=== PATIENT | male | born 1955 | race Caucasian/White ===

== ENCOUNTER 2023-04-10 10:16 | Day surgery (SDC) | payer MEDICARE, SELFPAY ==
[2023-04-10 10:46] VITALS: BP 148/101; PULSE 79; RESP 16; TEMP 36.2; O2SAT 99; BMI 24.0
--- NOTE | 2023-04-10 11:16 | HP.PCM_ITS ---
HPI - General General Date of Admission: 04/10/23 Date of Service: 04/10/23 HPI Narrative WALI NARAYANAN, is a 67 M who presents today for screening colonoscopy. He has no past medical history and does not take any medicines daily basis. He is not having abdominal pain, cramping, nausea, vomiting or diarrhea. Overall is in very good health. [facility], [facility] Medical History Alcohol use Chest pain Heartburn History of echocardiogram History of stress test Non-smoker Wears glasses Wears hearing aid Home Medications acetaminophen 500 mg tablet 500 - 1,000 mg PO Q6H PRN PRN Pain 10/22/16 [History Last Taken Unknown] Allergy/AdvReac Type Severity Reaction Status Date / Time No Known Allergies Allergy Verified 10/23/22 16:14 Family History Father Throat cancer Surgical History History of surgery on arm Hx of appendectomy Social History household members: spouse Smoking Status: Never smoker ROS Review of Systems ROS Unobtainable: other Constitutional Constitutional: Denies fatigue, fever(s), poor appetite, weight gain or weight loss ENT HEENT: Denies mouth lesions Cardiovascular Cardiovascular: Denies abdominal bloating, abdominal edema or abdominal pain Respiratory/Chest Respiratory/Chest: Denies change in mental status, change in phlegm color, chest congestion or chest tightness Gastrointestinal Gastrointestinal: Denies belching, bloating, change in bowel habits, change in stool character, chewing difficulty, coffee ground emesis, constipation, cramping, diarrhea, dyspepsia, dysphagia, early satiety, excessive flatus, fecal incontinence, heartburn, hematemesis, hematochezia, hemorrhoids, loose stools, melena, nausea, odynophagia, rectal bleeding, tenesmus, vomiting or weight changes Genitourinary Genitourinary: Denies abdominal discomfort, burning urination or itching Musculoskeletal Musculoskeletal: Reports as per HPI; Denies muscle weakness or myalgias Integumentary Integumentary: Denies jaundice Neurologic Neurologic: Denies lack of coordination or weakness Psychiatric Psychiatric: Denies confusion, depression, memory loss, mood swings, paranoia or suicidal ideation Endocrine Endocrinology: Denies systems reviewed and no addt'l complaints, except as documented Hematologic/Lymphatic Hematologic/Lymphatic: Denies anemia, easy bleeding, easy bruising or lymphadenopathy Allergic/Immunologic Allergic/Immunologic: Denies systems reviewed and no addt'l complaints, except as documented Vital Signs Vital Signs Vital Signs: 04/10/23 10:46 04/10/23 10:46 Temperature 97.2 F L Temperature Source Temporal Pulse Rate 79 Respiratory Rate 16 Respiratory Pattern Normal Blood Pressure 148/101 H Blood Pressure Mean 116 Blood Pressure Source Monitor Blood Pressure Position Semi-Fowlers Blood Pressure Location Left Arm Pulse Ox 99 Oxygen Delivery Method Room Air Weight Weight: 144 lb 6.444 oz Body Mass Index (BMI) 24.0 Physical Exam Const alert General Appearance: cooperative Orientation / Consciousness: oriented to person HEENT hearing grossly normal bilaterally Head and Scalp: normal to inspection Face and Sinus: face symmetric Nose: external nose normal Mouth: oral and palatal mucosa normal Eyes conjunctivae normal General Eye: normal appearance of both eyes Neck full ROM General: normal visual inspection Lymph Lymphatic: no lymphadenopathy noted Chest inspection of chest normal and palpation of chest normal Chest: symmetrical chest wall rise Resp normal respiratory effort Effort and Inspection: able to speak in complete sentences Cardio regular rate GI non-distended Percussion: normal to percussion Rectal Exam: deferred Neuro Speech: speech normal Gait (Neuro): normal gait Assessment & Plan Assessment/Plan (1) Encounter for screening for malignant neoplasm of colon: PLAN: He was explained alternatives, risk, benefits include not withstanding bleeding, infection, sepsis, perforation, need for emergent surgery and . He will have an ASA of 2.
[2023-04-10 11:40] VITALS: BP 114/78; BP 148/99; PULSE 72; RESP 16; TEMP 36.2; O2SAT 100
[2023-04-10 11:45] VITALS: BP 118/84; BP 148/99; PULSE 70; RESP 14; O2SAT 98
--- NOTE | 2023-04-10 11:47 | OP.COLON_ITS ---
Patient Name: Ryan Owens Procedure Date: 04/10/2023 11:07 AM Date of : 1955 Age: 67 Procedure: Colonoscopy Indications: Screening for colorectal malignant neoplasm Providers: Dakota Pennington DO Medicines: Monitored Anesthesia Care Patient Profile: This is a 67 year old male. Refer to note in patient chart for documentation of history and physical. Last Colonoscopy: more than 10 years ago. Complications: No immediate complications. Procedure: Pre-Anesthesia Assessment: - Prior to the procedure, a History and Physical was performed, and patient medications and allergies were reviewed. The risks and benefits of the procedure and the sedation options and risks were discussed with the patient. All questions were answered and informed consent was obtained. Patient identification and proposed procedure were verified by the physician. Mental Status Examination: normal. Respiratory Examination: clear to auscultation. CV Examination: normal. Prophylactic Antibiotics: The patient does not require prophylactic antibiotics. Prior Anticoagulants: The patient has taken no anticoagulant or antiplatelet agents. ASA Grade Assessment: II - A patient with mild systemic disease. After reviewing the risks and benefits, the patient was deemed in satisfactory condition to undergo the procedure. The anesthesia plan was to use monitored anesthesia care (MAC). Immediately prior to administration of medications, the patient was re-assessed for adequacy to receive sedatives. The heart rate, respiratory rate, oxygen saturations, blood pressure, adequacy of pulmonary ventilation, and response to care were monitored throughout the procedure. The physical status of the patient was re-assessed after the procedure. After I obtained informed consent, the scope was passed under direct vision. Throughout the procedure, the patient's blood pressure, pulse, and oxygen saturations were monitored continuously. The Colonoscope was introduced through the anus and advanced to the cecum, identified by appendiceal orifice and ileocecal valve. The colonoscopy was performed without difficulty. The patient tolerated the procedure well. The quality of the bowel preparation was adequate. The ileocecal valve, appendiceal orifice, and rectum were photographed. Scope In: 11:24:00 AM Scope Withdrawal Time 0 hours 6 minutes 32 seconds Scope Out: 11:36:12 AM Total Procedure Duration Time 0 hours 12 minutes 12 seconds Findings: The perianal and digital rectal examinations were normal. A few small-mouthed diverticula were found in the recto-sigmoid colon. The exam was otherwise without abnormality on direct and retroflexion views. Impression: - Diverticulosis in the recto-sigmoid colon. - The examination was otherwise normal on direct and retroflexion views. - No specimens collected. Recommendation: - Discharge patient to home. - Resume previous diet. - Continue present medications. - Repeat colonoscopy in 10 years for screening purposes. Procedure Code(s): --- Professional --- G0121, Colorectal cancer screening; colonoscopy on individual not meeting criteria for high risk CPT copyright 2021 [employer]. All rights reserved. The codes documented in this report are preliminary and upon hcc coders review may be revised to meet current compliance requirements. Dakota Pennington DO 04/10/2023 11:47:02 AM This report has been signed electronically. Number of Addenda: 0 Note Initiated On: 04/10/2023 11:07 AM
--- NOTE | 2023-04-10 11:47 | OP.CCLET_ITS ---
04/10/2023 Yun Arredondo [facility] Re : Colonoscopy procedure for Ryan Owens Dear [facility] This procedure was performed on Monday, April 10, 2023. My impressions and recommendations are as follows: Impressions : - Diverticulosis in the recto-sigmoid colon. - The examination was otherwise normal on direct and retroflexion views. - No specimens collected. Recommendations : - Discharge patient to home. - Resume previous diet. - Continue present medications. - Repeat colonoscopy in 10 years for screening purposes. My findings are described in the full procedure note, which is enclosed. If I can be of further assistance, please feel free to contact me at . Sincerely, Dakota Pennington, 04/10/2023 11:47:02 AM This report has been signed electronically.
[2023-04-10 11:50] VITALS: BP 129/79; BP 148/99; PULSE 76; RESP 16; O2SAT 98
[2023-04-10 11:57] VITALS: BP 137/93; BP 148/99; PULSE 73; RESP 16; TEMP 37.2; O2SAT 99
[2023-04-10 12:19] VITALS: BP 148/99
== END 2023-04-10 12:29 | disposition home or self-care (01) ==
LOC: EN 10:22 → AC 10:25
PROVIDERS: Visit Provider Internal Medicine Gastroenterology
PROC: 0DJD8ZZ Inspection of Lower Intestinal Tract, Via Natural or Artificial Opening Endoscopic (ICD-10-PCS; CPT 45378; principal; 2023-04-10 11:10)
DX: Z12.11 Encounter for screening for malignant neoplasm of colon (principal); K57.30 Diverticulosis of large intestine without perforation or abscess without bleeding
CPT/HCPCS: G0121; J7120; J2405

== ENCOUNTER 2025-04-10 12:14 | Emergency (ER) | payer MEDICARE, SELFPAY ==
[2025-04-10 12:15] VITALS: BP 156/97; PULSE 75; RESP 18; TEMP 35.8; O2SAT 99; BMI 24.1
--- NOTE | 2025-04-10 12:25 | CT_ITS ---
PROCEDURE: BRAIN/HEAD WITHOUT CONTRAST 04/10/2025 REASON FOR EXAM: PAIN TECHNIQUE: Procedure Code: CTBR Modality: CT Procedure: BRAIN/HEAD WITHOUT CONTRAST Coronal and Sagittal reconstruction series were provided. One or more dose reduction techniques were used (e.g., Automated exposure control, adjustment of the mA and/or kV according to patient size, use of iterative reconstruction technique. RADIATION DOSE SUMMARY: DLP: 796 mGycm COMPARISON: none FINDINGS: There is no acute infarct, intracranial hemorrhage, or mass effect. There is no hydrocephalus or significant midline shift. No acute, depressed calvarial fractures. No large scalp hematomas. The paranasal sinuses are clear. CT/Brain/Head without Contrast IMPRESSION: No acute intracranial process. Reading Location: [id number]
--- NOTE | 2025-04-10 12:26 | EDS_ITS ---
HPI History of Present Illness Chief Complaint: Headache Narrative Narrative: 69-year-old male presents with his because of headache that he has had for the last 5 days. He denies any fevers or chills, no nausea or vomiting, no diarrhea or other symptoms. He states that he has had pain mainly in the occipital area radiating down to his neck, his neck may feel somewhat stiff. He states he also has brain fog. He denies any trauma. He does not take blood thinners. Additionally, his states that she gave him NSAIDs on Saturday and which seemed to help with his headache, but he did not take anything today. He rates it a 7 out of 10. No exacerbating or alleviating factors. No paresthesias of arms or legs. [facility] Medical History Wears glasses Wears hearing aid Alcohol use Heartburn Non-smoker History of echocardiogram History of stress test Chest pain Home Medications ?Medication ?Instructions ?Recorded ?Last Taken ?Type acetaminophen 500 mg tablet 500 - 1,000 mg PO Q6H PRN PRN Pain 10/22/16 Unknown History Allergy/AdvReac Type Severity Reaction Status Date / Time No Known Allergies Allergy Verified 04/10/25 12:15 Family History Father Throat cancer Surgical History History of surgery on arm Hx of appendectomy Social History household members: spouse Smoking Status: Never smoker ROS ROS ED ROS Narrative Review of systems positive for headache and neck pain/stiffness, no fevers or chills, no nausea or vomiting, no paresthesias, no exacerbating or alleviating factors. Positive brain fog. EXAM Physical Exam Narrative Exam Narrative: Afebrile. Vital signs noted. Nontoxic-appearing. Cardiovascular examination feels regular rate and rhythm. Lungs are clear to auscultation bilaterally. Abdomen is soft and nontender with positive bowel sounds. Neurological examination is nonfocal, nonlateralizing. Awake, alert, oriented x 3. NIH stroke scale is 0. Cerebellar functioning normal as tested. PERRL, EOMI. Neck soft and supple without meningismus. Full range of motion without pain. No vertebral point tenderness or bony step-off. Const Vital Signs: 04/10/25 12:15 04/10/25 13:12 Temperature 96.5 F L Temperature Source Temporal Pulse Rate 75 56 L Respiratory Rate 18 12 Blood Pressure 156/97 H 149/95 H Blood Pressure Mean 116 113 Pulse Ox 99 Oxygen Delivery Method Room Air MDM MDM MDM Narrative Medical decision making narrative: Differential diagnosis includes but not limited to new onset headache disorder versus migrainous type headache versus brain mass versus hemorrhage. Regarding his stiff neck, I do not feel he requires a lumbar puncture or any imaging of the neck. I have low suspicion for stroke given his normal NIH stroke scale being 0, and additionally has had a headache for 5 days. Patient administered Toradol, Compazine, and Benadryl as well as normal saline. I will check a CBC and BMP to look for signs of dehydration or anemia. However clinically he is not anemic. I reviewed his laboratory work and he has normal white count of 6.3, hemoglobin 16, hematocrit 47.7, platelet count 173. Electrolyte panel is grossly unremarkable with a normal glucose of 93, sodium normal at 140 with potassium 4.2, normal anion gap of 8, BUN/creatinine normal. CT of the brain was obtained and reviewed. There is no acute process according to the radiology report. Upon repeat examination, he was seen ambulatory to the bathroom and back. Upon repeat examination, although he states initially that he feels the same, he states that medication took the pain away in the occiput. At this point in time, I feel he can be discharged to follow-up with his primary care provider. He and his were told that they may need follow-up with neurology as well, or even a headache specialist. While I am unsure as to the cause of his pain, I feel he can be discharged. Return instructions to the emergency department were reviewed. Disposition is discharged home in stable condition. History & Record Review Discussion w/independent historian: Patient and Family Additional record(s) reviewed:: Prior ED visit (Last ED visit 2015) Lab Data Attestation: I reviewed the patient's lab results. Labs: Laboratory Results - last 24 hr 04/10/25 12:27 WBC 6.3 RBC 5.42 Hgb 16.0 Hct 47.7 MCV 88.0 MCH 29.5 MCHC 33.5 RDW Std Deviation 38.5 RDW Coeff of Charley 12.0 Plt Count 173 MPV 10.3 Immature Gran % (Auto) 0.200 Neut % (Auto) 61.7 Lymph % (Auto) 27.9 Boone % (Auto) 8.8 Eos % (Auto) 0.8 Baso % (Auto) 0.6 Absolute Neuts (auto) 3.9 Absolute Lymphs (auto) 1.77 Nucleated RBC % 0 Sodium 140 Potassium 4.2 Chloride 106 Carbon Dioxide 25.6 Anion Gap 8 BUN 11 Creatinine 0.87 Estim Creat Clear Calc 71.67 Est GFR (MDRD) Non-Af 94 BUN/Creatinine Ratio 12.8 Glucose 93 Calcium 9.9 Radiography Diagnostic Testing: Clinical Impression(s) from Imaging Studies Brain CT 04/10/25 12:25 IMPRESSION: No acute intracranial process. Reading Location: [facility] Discharge Plan Triage Chief Complaint: Headache ED Provider: Edgar Acosta Dx/Rx/DC Orders Prescriptions: No Action acetaminophen 500 MG tablet 500 - 1,000 mg PO Q6H PRN PRN (Reason: Pain) Primary Care Provider: Abbey Perez [facility] Referrals: [facility] [Non-Staff, Medical] Print Language: Ethiopian
[2025-04-10] MEDS: 0.9% Normal Saline (1000mL) 1,000 ML 999 ML IV (12:31)
[2025-04-10 12:33] LABS: Hematocrit 47.7 % (40-54); Hemoglobin 16.0 g/dL (13.0-16.5); Immature Granulocytes Count 0.010 X10^3/uL (0.0-0.0); Mean Corp Hgb Conc 33.5 g/dL (32-36); Mean Corpuscular Volume 88.0 fL (80-94); Mean Platelet Vol. 10.3 fl (6.2-12.0); NRBC Flagged by Analyzer 0 % (0-5); Platelet Count 173 K/mm3 (150-450); RBC Distribution Width CV 12.0 % (11.6-14.6); RBC Distribution Width SD 38.5 fl (35.1-43.9); Red Blood Count 5.42 M/mm3 (4.6-6.2); White Blood Count 6.3 K/mm3 (4.4-11.0)
[2025-04-10] MEDS: DiphenhydrAMINE 50 MG/ML Syringe 25 MG IV (12:33)
--- OUTSIDE RECORDS SUMMARY | 2025-04-10 12:36 | XMS RPT_ITS | CCD ---
Author Organization [facility] Care Team Providers Care Projection Technician Name Role Phone Dr. Syed Jack Attending Unavailable Wanda, Dr. Ernst Ratliff Referring Unavailable Clinic, [place] Maria Elena Primary Care Provider Un available [facility] [place] [facility], Yun Arredondo Referring Provid er Friend, Dr. Duncan Attending Provider Friend, Dr. Duncan Other Provider [facility] [place], [place] Maria Elena Primary Care Unavailable Jacqueline Hua Attending [facility], [facility] Primary Care [facility], [place] Maria Elena Referring Unavailable Dakota Pennington Attending [facility], [facility] Unavailable Chris AESTHETICS INSTRUCTOR, Abbey Attending Unavailable Chris AESTHETICS INSTRUCTORAbbey Attending [facility], [facility] Primary Care [facility], [facility] Primary Care [facility], Yun Arredondo Referring Unavailable FriendDakota Consulting Unavailable FriendDakota Attending Unavailable Medications Current Medications Medication Drug Class(es) Dates Sig (Normalized) Sig (Original) acetaminophen 500 mg oral tablet (1 source) Start: 10-22-2016 take 500-1000 mg by mouth every six hours as needed Acetaminophen Active 500 - 1000 MG PO EVERY 6 HOURS NEEDED October 21, 2016 11:00pm predniSONE 10 mg oral tablet (1 source) Start: 01-18-2023 predniSONE (DELTASONE) 10 mg tablet Indications: Allergic contact dermatitis due to plants, except food Take 4 tabs daily for 3 days, then 2 tabs daily for 3 days, then 1 tab daily for 3 days with food. 21 tablet 0 01/18/2023 Active Start: 01-18-2023 predniSONE (DE LTASONE) 10 mg tablet Indications: Allergic contact dermatitis due to plants, except food Take 4 tabs daily for 3 days, then 2 tabs daily for 3 days, then 1 tab daily for 3 days with food. 21 tablet 0 01/18/2023 Active Comment on above: Take 4 tabs daily fo r 3 days, then 2 tabs daily for 3 days, then 1 tab daily for 3 days with food. Completed/Discontinued Medications Medication Drug Class(es) Dates Sig (Normalized) Sig (Original) amoxicillin 500 mg / clavulanate 125 mg oral tablet (1 source) Penicillin-class Antibacterial Start: 10-22-2016 End: 10-23-2022 Amoxicillin-Pot Clavulanate (Augmentin 500-125 Tablet) 1 EACH tablet Discontinued 1 EACH PO TWICE A DAY October 21, 2016 11:00pm October 23, 2022 3:15pm aspirin 325 mg delayed release oral tablet (1 source) Platelet Aggregation Inhibitor, Nonsteroidal Anti-inflammatory Drug Start: 10-22-2016 End: 10-23-2022 take 325 mg by mouth once daily Aspirin Discontinued 325 MG PO DAILY October 21, 2016 11:00pm October 23, 2022 3:15pm promethazine hydrochloride 25 mg oral tablet (1 source) Phenothiazine Start: 06-03-2017 take 1 tablet by mouth every six hours as needed for nausea and nausea promethazine (PHENERGAN) 25 mg tablet Indications: Nausea Take 1 tablet by mouth every 6 hours as needed for Nausea/Vomiting. 12 tablet 0 06/03/2017 Active Comment on above: Take 1 tablet by stefan every 6 hours as needed for Nausea/Vomiting. raNITIdine 75 mg oral tablet (1 source) Histamine-2 Receptor Antagonist Start: 10-22-2016 End: 10-23-2022 Ranitidine Hcl (Zantac 75) 75 MG tablet Discontinued 75 MG PO NEEDED October 21, 2016 11:00pm October 23, 2022 3:15pm sildenafil 100 mg oral tablet (1 source) Phosphodiesterase 5 Inhibitor Start: 11-24-2013 sildenafil (VIAGRA) 100 mg tablet Take as directed 6 tablet 6 11/24/2013 Active Comment on above: Take as directed Problems Problem Classification Problem Date Documented Da te Episodic/Chronic Allergic reactions (1 source) Allergic contact dermatitis caused by plant material; Translations: [Allergic contact dermatitis due to plants, except food] 01-18-2023 Episodic Nonspecific chest pain (1 source) Chest pain; Translations: [Chest pain, unspecified] 10-23-2022 Episodic Other inflammatory condition of skin (1 source) Rosacea; Translations: [Rosacea, unspecified] Onset: 05-24-2009 05-24-2009 Chronic Other screening for suspected conditions (not mental disorders or infectious disease) (6 sources) Patient encounter status; Translations: [Encounter for screening for malignant neoplasm of colon] Onset: 04-29-2023 10-23-2022 Episodic Results Test Name Value Interpretation Reference Range Facil ity SURGICAL PATHOLOGYon 024 CASE REPORT [facility] Comment on above: Order Comment: Rena ferrer Type: TISSUE SPECIMEN Ordering Facility: [facility] Address: [address] [place] [address] Result Comment: Surg ical Pathology Report Case: [id number] Authorizing Provider: Ernst Muñoz Collected: 07/16/2023 02:55 PM Ordering Location: [facility] Received: 07/16/2023 07:35 PM [facility] Pathologist: Kimberley Alexis MD Specimen: SKIN SHAVE BIOPSY, L side nose near nares Performed By: #### S #### [facility] CLIA [id number] [address] [place] [address] [place] [address] [facility] CLINICAL HISTORY Hx SCC in situ face. R/o BCC vs grannlomatous rosacea, sebaceous. [facility] Comment on above: Order Comment: Rena ferrer Type: TISSUE SPECIMEN Ordering Facility: [facility] Address: [address] [place] [address], [place] [address] Performed By: #### S #### [facility] CLIA [id number] [address] [place] [address] [facility] FINAL DIAGNOSIS [facility] Comment on above: Order Comment: Rena ferrer Type: TISSUE SPECIMEN Ordering Facility: [facility] Address: [address] [place] [address] Result Comment: A. S kin, left side nose near nares, shave biopsy: - Basal cell carcinoma, nodular type. JESSICA/NICKI/kiarra 07/17/2023 Performed By: #### S #### [facility] CLIA [id number] [address] [place] [address] STATES OF [facility] FINAL PERFORMING LAB [facility] Comment on above: Order Comment: Speci men Type: TISSUE SPECIMEN Ordering Facility: [facility] Address: [address] [place] [address] Result Comment: Diag nostic interpretation performed at [facility], [address] [place] [address] CLIA# [id number] Automatic Lehr Operator: Fito Hdz M.D. Performed By: #### S #### [facility] CLIA [id number] [address] [place] [address] OF [facility] GROSS DESCRIPTION [facility] Comment on above: Order Comment: Speci men Type: TISSUE SPECIMEN Ordering Facility: [facility] Address: [address] [place] [address] Result Comment: A. S KIN SHAVE BIOPSY Received in formalin is a 0.5 x 0.5 x 0.1 cm shave of skin. On the skin surface there is a 0.2 cm ogden, slightly elevated area. The specimen is bisected. Totally submitted in one cassette. Gross examination performed at [facility], [address] [place] [address] KK July 16, 2023 11:19 PM Performed By: #### S #### [facility] CLIA [id number] [address] [place] [address] [place] Colonoscopy Reporton 04-10- 023 Colonoscopy Report [facility] Medical Records Department [address] [place] [address] Colonoscopy Report MR#: [id number] Acct: [id number] Name: WALI OWENS Rep #: [id number] : 1955 67 From: Dakota Friend DO PCP: [facility] Status:[facility] Patient Name: Wali Owens Procedure Date: 04/10/2023 11:07 AM Date of : 1955 Age: 67 Procedure: Colonoscopy Indications: Screening for colorectal malignant neoplasm Providers: Dakota Pennington DO Medicines: Monitored Anesthesia Care Patient Profile: This is a 67 year old male. Refer to note in patient chart for documentation of history and physical. Last Colonoscopy: more than 10 years ago. Complications: No immediate complications. Procedure: Pre-Anesthesia Assessment: - Prior to the procedure, a History and Physical was performed, and patient medications and allergies were reviewed. The risks and benefits of the procedure and the sedation options and risks were discussed with the patient. All questions were answered and informed consent was obtained. Patient identification and proposed procedure were verified by the physician. Mental Status Examination: normal. Respiratory Examination: clear to auscultation. CV Examination: normal. Prophylactic Antibiotics: The patient does not require prophylactic antibiotics. Prior Anticoagulants: The patient has taken no anticoagulant or antiplatelet agents. ASA Grade Assessment: II - A patient with mild systemic disease. After reviewing the risks and benefits, the patient was deemed in satisfactory condition to undergo the procedure. The anesthesia plan was to use monitored anesthesia care (MAC). Immediately prior to administration of medications, the patient was re-assessed for adequacy to receive sedatives. The heart rate, respiratory rate, oxygen saturations, blood pressure, adequacy of pulmonary ventilation, and response to care were monitored throughout the procedure. The physical status of the patient was re-assessed after the procedure. After I obtained informed consent, the scope was passed under direct vision. Throughout the procedure, the patient's blood pressure, pulse, and oxygen saturations were monitored continuously. The Colonoscope was introduced through the anus and advanced to the cecum, identified by appendiceal orifice and ileocecal valve. The colonoscopy was performed without difficulty. The patient tolerated the procedure well. The quality of the bowel preparation was adequate. The ileocecal valve, appendiceal orifice, and rectum were photographed. Scope In: 11:24:00 AM Scope Withdrawal Time 0 hours 6 minutes 32 seconds Scope Out: 11:36:12 AM Total Procedure Duration Time 0 hours 12 minutes 12 seconds Findings: The perianal and digital rectal examinations were normal. A few small-mouthed diverticula were found in the recto-sigmoid colon. The exam was otherwise without abnormality on direct and retroflexion views. Impression: - Diverticulosis in the recto-sigmoid colon. - The examination was otherwise normal on direct and retroflexion views. - No specimens collected. Recommendation: - Discharge patient to home. - Resume previous diet. - Continue present medications. - Repeat colonoscopy in 10 years for screening purposes. Procedure Code(s): --- Professional --- G0121, Colorectal cancer screening; colonoscopy on individual not meeting criteria for high risk CPT copyright 2021 [employer]. All rights reserved. The codes documented in this report are preliminary and upon cattle sprayer review may be revised to meet current compliance requirements. Dakota Pennington DO 04/10/2023 11:47:02 AM This report has been signed electronically. Number of Addenda: 0 Note Initiated On: 04/10/2023 11:07 AM 04/10/23 1147 Date Dakota Pennington DO Cosigner Signature: Date (if indicated) CC: Dakota Pennington DO; [facility] Date Dictated: 04/10/23 110 Date Transcribed: Research Aide: NAMAN Signed [facility] Office Visit (UCWSTR ) WALI OWENS ([id number]) 1955 M Date Time Provider Department 01/18/23 9:15 AM [facility] During your visit today, we recorded the following information about you: Temperature Pulse Respiration Blood pressure 96.9 degrees 92/minute 16/minute 140/88 Weight 64 kg María Cohen APRN.CNP 01/18/2023 9:09 AM Signed Subjective Came in with complaints of possible poison lance. Patient says he has an on bilateral arms and hands bilateral legs and groin area. Patient says he got into some poison lance and ever since has had an itchy rash. Patient used calamine lotion but it seems to be spreading not going away. Patient's had it for 3 days. Patient denies any difficulty urinating. The history is provided by the patient. No diamond wheel molder was used. Rash Review of Systems Constitutional: Negative. Skin: Positive for itching and rash. Objective Physical Exam Constitutional: Appearance: Normal appearance. Pulmonary: Effort: Pulmonary effort is normal. Skin: Comments: Area davis where patient says he has itchy rash but was not visually observed. Blue area davis visually observed contact dermatitis rash. No signs of infection. Neurological: Mental Status: He is alert. PAST MEDICAL HISTORY Diagnosis Date NEGATIVE MEDICAL HISTORY PAST SURGICAL HISTORY Procedure Laterality Date OPTX HUMERAL SHFT FX W/PLATE/SCREWS W/WOCERCLAGE ORIF Forearm ALLERGIES Patient has no known allergies. MEDICATIONS sildenafil (VIAGRA) 100 mg tablet Take as directed predniSONE (DELTASONE) 10 mg tablet Take 4 tabs daily for 3 days, then 2 tabs daily for 3 days, then 1 tab daily for 3 days with food. promethazine (PHENERGAN) 25 mg tablet Take 1 tablet by mouth every 6 hours as needed for Nausea/Vomiting. (Patient not taking: Reported on 09/14/2021 ) FAMILY HISTORY Problem Relation Age of Onset Cancer Father Throat None Mother Social History Tobacco Use Smoking status: Never Smokeless tobacco: Never Substance Use Topics Alcohol use: Yes Comment: Occasional Drug use: No ASSESSMENT/PLAN: 1. Allergic contact dermatitis due to plants, except food - ICD9: 692.6, ICD10: L23.7 - PREDNISONE 10 MG TABLET Patient was educated about proper use of medication and supportive therapies. Patient's tolerated prednisone before. Patient will follow-up if signs and symptoms seem to be getting worse not better. Patient was okay with this care plan. María Cohen APRN.CNP Allergies As of Date: 01/18/2023 (No Known Allergies) Date Reviewed: 01/18/2023 Reviewed by: Heather Shelton - Fully Assessed Reason for Visit: Rash [1087] Cmt: itching all over x 3 days Primary Visit Diagnosis:Allergic contact dermatitis due to plants, except food [L23.7] Order(s):predniSONE (DELTASONE) 10 mg tabletTake 4 tabs daily for 3 days, then 2 tabs daily for 3 days, then 1 tab daily for 3 days with food.Disp: 21 tabletRfl: 0 Prescriptions as of 01/18/2023 - predniSONE (DELTASONE) 10 mg tablet Take 4 tabs daily for 3 days, then 2 tabs daily for 3 days, then 1 tab daily for 3 days with food. - promethazine (PHENERGAN) 25 mg tablet Take 1 tablet by mouth every 6 hours as needed for Nausea/Vomiting. - sildenafil (VIAGRA) 100 mg tablet Take as directed Problem List As Of Date 01/18/2023 Noted Resolved Rosacea [L71.9] 05/24/2009 Prescriptions ordered this encounter Disp Refills Start End PREDNISONE 10 MG TABLET 21 t* 0 01/18/2023 Sig: Take 4 tabs daily for 3 days, then 2 tabs daily for 3 days, then 1 tab daily for 3 days with food. Encounter Status:Closed by MARÍA COHEN on 01/18/23 [facility] Vital Signs Date Time Vital Sign Value Performing Clinician Facility 04-10-2023 11:57-0500 Body temperature 98.9 [degF] [facility] Work Phone: [facility] 04-10-2023 11:57-0500 Diastolic blood pressure 93 mm[Hg] [facility] Work Phone: [facility] 04-10-2023 11:57-0500 Heart rate 73 /min [facility] Work Phone: [facility] 04-10-2023 11:57-0500 Respiratory rate 16 /min [facility] Work Phone: [facility] 04-10-2023 11:57-0500 SaO2% (BldA) [Mass fraction] 99 % [facility] Work Phone: [facility] 04-10-2023 11:57-0500 Systolic blood pressure 137 mm[Hg] [facility] Work Phone: [facility] 04-10-2023 10:46-0500 Body height 165.1 cm [facility] Work Phone: [facility] 04-10-2023 10:46-0500 Body mass index (BMI) [Ratio] 24 kg/m2 [facility] Work Phone: [facility] 04-10-2023 10:46-0500 Body weight 65.5 kg [facility] Work Phone: [facility] 01-18-2023 08:54-0400 Body temperature 96.91 [degF] María Cohen APRN.PRODUCTION TESTER Work Phone: [facility] 01-18-2023 08:54-0400 Body weight 63.96 kg María Cohen APRN.PRODUCTION TESTER Work Phone: [facility] 01-18-2023 08:54-0400 Diastolic blood pressure 88 mm[Hg] María Cohen APRN.PRODUCTION TESTER Work Phone: [facility] 01-18-2023 08:54-0400 Heart rate 92 /min María Cohen APRN.PRODUCTION TESTER Work Phone: [facility] 01-18-2023 08:54-0400 Respiratory rate 16 /min María Cohen APRN.PRODUCTION TESTER Work Phone: [facility] 01-18-2023 08:54-0400 SaO2% (BldA) [Mass fraction] 98 % María Cohen APRN.PRODUCTION TESTER Work Phone: [facility] 01-18-2023 08:54-0400 Systolic blood pressure 140 mm[Hg] María Cohen APRN.PRODUCTION TESTER Work Phone: [facility] Encounters Encounter Date Encounter Type Care Provider Facility Start: 07-18-2023 Encounter for genera l adult medical examination without abnormal findings Abbey Perez NP [facility] Start: 07-18-2023 ambulatory [facility] Facility:[facility] Start: 04-10-2023 End: 04-10-2023 ambulatory [facility] Facility:[facility] Start: 04-10-2023 Non-patient / Non-visit [facility] Work Phone: [facility] Start: 04-10-2023 End: 04-10-2023 Admission to same day surgery center [facility] Work Phone: [facility] Work Phone: Start: 04-10-2023 End: 04-10-2023 ambulatory [facility] Work Phone: [facility] Work Phone: Start: 01-18-2023 End: 01-18-2023 ambulatory Facility:[facility] Start: 01-18-2023 End: 01-18-2023 Patient encounter procedure María Cohen APRN.PRODUCTION TESTER Work Phone: [facility] Care Comment on above: Allergic contact tayo matitis due to plants, except food (Primary Dx) Start: 10-23-2022 ambulatory [facility] Facility:[facility] Start: 09-06-2022 ambulatory Abbey Perez AESTHETICS INSTRUCTOR Fac ility:[facility] Start: 06-19-[address] Syed Jack Facility: 9400 Procedures Date Procedure Procedure Detail Performing Clinician Start: 04-10-2023 Colonoscopy [facility] Work Phone: Plan of Treatment Date Care Activity Detail Author Start: 04-10-2023 Patient discharge [facility] Start: 01-11-2023 Influenza vaccination INFLUENZA (#1) [facility] Start: 2022 ADVANCE DIRECTIVE DISCUSSION ADVANCE DIRECTIVE DISCUSSION [facility] Start: 2022 PNEUMOCOCCAL: 65+ (1 - PCV) PNEUMOCOCCAL: 65+ (1 - PCV) [facility] Start: 05-13-2022 DEPRESSION ASSESSMENT DEPRESSION ASSESSMENT [facility] Start: 2012 PROSTATE CANCER SCREENING DISCUSSION PROSTATE CANCER SCREENING DISCUSSION [facility] Start: 03-07-2010 Urine microalbumin profile DTAP,TDAP,TD (1 - Tdap) [facility] Start: 08-18-2007 SHINGRIX VACCINE (1 of 2) SHINGRIX VACCINE (1 of 2) [facility] Start: 05-04-2006 DIABETES SCREEN DIABETES SCREEN [facility] Start: 2002 COLOGUARD (FIT-DNA) COLOGUARD (FIT-DNA) [facility] Start: 2002 Colonoscopy COLONOSCOPY [facility] Start: 2002 COLORECTAL CANCER SCREENING COLORECTAL CANCER SCREENING [facility] Start: [address] COLONOGRAPHY [facility] Start: 2002 FECAL OCCULT BLOOD FECAL OCCULT BLOOD [facility] Start: 2002 SIGMOIDOSCOPY SIGMOIDOSCOPY [facility] Start: 1992 LIPID SCREEN LIPID SCREEN [facility] Start: 08-18-1975 HEPATITIS C SCREENING HEPATITIS C SCREENING [facility] Start: 08-18-1975 HIV SCREENING HIV SCREENING [facility] Start: 02-16-1958 COVID-19 VACCINE (#1) COVID-19 VACCINE (#1) [facility] Patient referral [facility] Work Phone: Immunizations Immunization Date Immunization Notes Care Provider Rolando urbina 03-06-2010 tetanus and diphther ia toxoids, adsorbed, preservative free, for adult use (2 Lf of tetanus toxoid and 2 Lf of diphtheria toxoid) María Cohen APRN.CNP Work Phone: [facility] Payers Date Payer Category Payer Self-pay 2022 Unknown [id number] 2022 Medicare MMO MEDICARE MMO MEDADVANTAGE PPO [id number] 2022-Present [phone] [address] [place] [address] PPO [id number] 2022 Unknown [id number] 2016 Unknown [employer] [id number] 1955 Unknown [id number] Medicare MEDICARE PART A B [id number] Unknown [id number] Unknown [id number] Unknown [id number] Unknown [id number] Unknown [id number] Social History Date Type Detail Facility Start: 01-18-2023 Tobacco smoking status NHIS Never smoked tobacco [facility] Work Phone: Start: 01-18-2023 Tobacco use and exposure Smokeless tobacco non-user [facility] Work Phone: Start: 01-18-2023 Alcohol intake Current drinke r of alcohol (finding) [facility] Start: 04-20-2020 End: 01-18-2023 History of Social function [facility] Start: 04-20-2020 End: 01-18-2023 Tobacco use panel [facility] National Score (1-100), lower number is lower risk Not on file [facility] Start: 1955 Sex Assigned At Not on file [facility] Start: 04-08-2023 Tobacco smoking status NHIS Unknown if ever smoked [facility] Start: 04-08-2016 None [facility] Start: 04-08-2016 Spouse/ Signif icant Other [facility] Start: 1955 Sex Assigned At Male [facility] Goals Date Patient Goal Desired Activity /State Mental Status Date Assessment Result Facility 04-10-2023 Cognitive function Touch/Shaking;[facility] in [facility] Work Phone: Clinical Note 04-10-2023 Note Date & Type Note Facility 04-10-2023 Note [facility] Medical Records Department [address] [place] [address] History Physical Exam 04/10/23 1116 MR#: [id number] Acct: [id number] Name: WALI OWENS Rep #: [id number] : 1955 67 From: Dakota Pennington DO [facility] Status:[facility] Location: [place] [address] HPI - General General Date of Admission: 04/10/23 Date of Service: 04/10/23 HPI Narrative WALI OWENS, is a 67 M who presents today for screening colonoscopy. He has no past medical history and does not take any medicines daily basis. He is not having abdominal pain, cramping, nausea, vomiting or diarrhea. Overall is in very good health. [facility] Medical History Alcohol use Chest pain Heartburn History of echocardiogram History of stress test Non-smoker Wears glasses Wears hearing aid Home Medications acetaminophen 500 mg tablet 500 - 1,000 mg PO Q6H PRN PRN Pain 10/22/16 [History Last Taken Unknown] Allergy/AdvReac Type Severity Reaction Status Date / Time No Known Allergies Allergy Verified 10/23/22 16:14 Family History Father Throat cancer Surgical History History of surgery on arm Hx of appendectomy Social History household members: spouse Smoking Status: Never smoker ROS Review of Systems ROS Unobtainable: other Constitutional Constitutional: Denies fatigue, fever(s), poor appetite, weight gain or weight loss ENT HEENT: Denies mouth lesions Cardiovascular Cardiovascular: Denies abdominal bloating, abdominal edema or abdominal pain Respiratory/Chest Respiratory/Chest: Denies change in mental status, change in phlegm color, chest congestion or chest tightness Gastrointestinal Gastrointestinal: Denies belching, bloating, change in bowel habits, change in stool character, chewing difficulty, coffee ground emesis, constipation, cramping, diarrhea, dyspepsia, dysphagia, early satiety, excessive flatus, fecal incontinence, heartburn, hematemesis, hematochezia, hemorrhoids, loose stools, melena, nausea, odynophagia, rectal bleeding, tenesmus, vomiting or weight changes Genitourinary Genitourinary: Denies abdominal discomfort, burning urination or itching Musculoskeletal Musculoskeletal: Reports as per HPI; Denies muscle weakness or myalgias Integumentary Integumentary: Denies jaundice Neurologic Neurologic: Denies lack of coordination or weakness Psychiatric Psychiatric: Denies confusion, depression, memory loss, mood swings, paranoia or suicidal ideation Endocrine Endocrinology: Denies systems reviewed and no addt'l complaints, except as documented Hematologic/Lymphatic Hematologic/Lymphatic: Denies anemia, easy bleeding, easy bruising or lymphadenopathy Allergic/Immunologic Allergic/Immunologic: Denies systems reviewed and no addt'l complaints, except as documented Vital Signs Vital Signs Vital Signs: 04/10/23 10:46 04/10/23 10:46 Temperature 97.2 F L Temperature Source Temporal Pulse Rate 79 Respiratory Rate 16 Respiratory Pattern Normal Blood Pressure 148/101 H Blood Pressure Mean 116 Blood Pressure Source Monitor Blood Pressure Position Semi-Fowlers Blood Pressure Location Left Arm Pulse Ox 99 Oxygen Delivery Method Room Air Weight Weight: 144 lb 6.444 oz Body Mass Index (BMI) 24.0 Physical Exam Const alert General Appearance: cooperative Orientation / Consciousness: oriented to person HEENT hearing grossly normal bilaterally Head and Scalp: normal to inspection Face and Sinus: face symmetric Nose: external nose normal Mouth: oral and palatal mucosa normal Eyes conjunctivae normal General Eye: normal appearance of both eyes Neck full ROM General: normal visual inspection Lymph Lymphatic: no lymphadenopathy noted Chest inspection of chest normal and palpation of chest normal Chest: symmetrical chest wall rise Resp normal respiratory effort Effort and Inspection: able to speak in complete sentences Cardio regular rate GI non-distended Percussion: normal to percussion Rectal Exam: deferred Neuro Speech: speech normal Gait (Neuro): normal gait Assessment Plan Assessment/Plan (1) Encounter for screening for malignant neoplasm of colon: PLAN: He was explained alternatives, risk, benefits include not withstanding bleeding, infection, sepsis, perforation, need for emergent surgery and . He will have an ASA of 2. 04/10/23 1117 Cosigner Signature (if applicable): CC: Dakota Friend, DO; [facility] Signed [facility] Procedure note 04-10-2023 Note Date & Type Note Facility 04-10-2023 Procedure note [facility] Procedure note 04-10-2023 Note Date & Type Note Facility 04-10-2023 Procedure note [facility] Progress note 01-18-2023 Note Date & Type Note Facility 01-18-2023 Note HNO ID: [id number] Author: María Cohen APRN.PRODUCTION TESTER Service: ? Author Type: Nurse Practitioner Type: Progress Notes Filed: 01/18/2023 9:09 AM Note Text: Subjective Came in with complaints of possible poison lance. Patient says he has an on bilateral arms and hands bilateral legs and groin area. Patient says he got into some poison lance and ever since has had an itchy rash. Patient used calamine lotion but it seems to be spreading not going away. Patient's had it for 3 days. Patient denies any difficulty urinating. The history is provided by the patient. No diamond wheel molder was used. Rash Review of Systems Constitutional: Negative. Skin: Positive for itching and rash. Objective Physical Exam Constitutional: Appearance: Normal appearance. Pulmonary: Effort: Pulmonary effort is normal. Skin: Comments: Area davis where patient says he has itchy rash but was not visually observed. Blue area davis visually observed contact dermatitis rash. No signs of infection. Neurological: Mental Status: He is alert. PAST MEDICAL HISTORY Diagnosis Date NEGATIVE MEDICAL HISTORY PAST SURGICAL HISTORY Procedure Laterality Date OPTX HUMERAL SHFT FX W/PLATE/SCREWS W/WOCERCLAGE ORIF Forearm ALLERGIES Patient has no known allergies. MEDICATIONS sildenafil (VIAGRA) 100 mg tablet Take as directed predniSONE (DELTASONE) 10 mg tablet Take 4 tabs daily for 3 days, then 2 tabs daily for 3 days, then 1 tab daily for 3 days with food. promethazine (PHENERGAN) 25 mg tablet Take 1 tablet by mouth every 6 hours as needed for Nausea/Vomiting. (Patient not taking: Reported on 09/14/2021 ) FAMILY HISTORY Problem Relation Age of Onset Cancer Father Throat None Mother Social History Tobacco Use Smoking status: Never Smokeless tobacco: Never Substance Use Topics Alcohol use: Yes Comment: Occasional Drug use: No ASSESSMENT/PLAN: 1. Allergic contact dermatitis due to plants, except food - ICD9: 692.6, ICD10: L23.7 - PREDNISONE 10 MG TABLET Patient was educated about proper use of medication and supportive therapies. Patient's tolerated prednisone before. Patient will follow-up if signs and symptoms seem to be getting worse not better. Patient was okay with this care plan. María Cohen APRN.[facility] History of Present illness Narrative 01-18-2023 María Cohen APRN.PRODUCTION TESTER - 01/18/2023 8:57 AM EDT Note Date & Type Note Facility 01-18-2023 History of Presen t illness Narrative Images from the original note were not included. Subjective Came in with complaints of possible poison lance. Patient says he has an on bilateral arms and hands bilateral legs and groin area. Patient says he got into some poison lance and ever since has had an itchy rash. Patient used calamine lotion but it seems to be spreading not going away. Patient's had it for 3 days. Patient denies any difficulty urinating. The history is provided by the patient. No diamond wheel molder was used. Rash Review of Systems Constitutional: Negative. Skin: Positive for itching and rash. Objective Physical Exam Constitutional: Appearance: Normal appearance. Pulmonary: Effort: Pulmonary effort is normal. Skin: Comments: Area davis where patient says he has itchy rash but was not visually observed. Blue area davis visually observed contact dermatitis rash. No signs of infection. Neurological: Mental Status: He is alert. PAST MEDICAL HISTORY Diagnosis Date NEGATIVE MEDICAL HISTORY PAST SURGICAL HISTORY Procedure Laterality Date OPTX HUMERAL SHFT FX W/PLATE/SCREWS W/WOCERCLAGE ORIF Forearm ALLERGIES Patient has no known allergies. MEDICATIONS sildenafil (VIAGRA) 100 mg tablet Take as directed predniSONE (DELTASONE) 10 mg tablet Take 4 tabs daily for 3 days, then 2 tabs daily for 3 days, then 1 tab daily for 3 days with food. promethazine (PHENERGAN) 25 mg tablet Take 1 tablet by mouth every 6 hours as needed for Nausea/Vomiting. (Patient not taking: Reported on 09/14/2021 ) FAMILY HISTORY Problem Relation Age of Onset Cancer Father Throat None Mother Social History Tobacco Use Smoking status: Never Smokeless tobacco: Never Substance Use Topics Alcohol use: Yes Comment: Occasional Drug use: No ASSESSMENT/PLAN: 1. Allergic contact dermatitis due to plants, except food - ICD9: 692.6, ICD10: L23.7 - PREDNISONE 10 MG TABLET Patient was educated about proper use of medication and supportive therapies. Patient's tolerated prednisone before. Patient will follow-up if signs and symptoms seem to be getting worse not better. Patient was okay with this care plan. María Cohen APRN.[facility]OK documented in this encounter [facility] Evaluation note Note Date & Type Note Facility Evaluation note Diagnosis Allergic contact dermatitis due to plants, except food- Primary Contact dermatitis and other eczema due to plants (except food) documented in this encounter [facility] Evaluation note Note Date & Type Note Facility Evaluation note Diagnosis Onset Date Encounter for screening for malignant neoplasm of colon acute [facility] Work Phone: History and physical note Note Date & Type Note Facility History and physical note Note Date/Time April 10, 2023 11:17am [facility] Medical Records Department [address] [place] [id number] History & Physical Exam 04/10/23 1116 MR#: [id number] Acct: [id number] Name: WALI OWENS Rep #:[id number] : 1955 67 From: Dakota Pennington DO PCP: [facility] Location: [place] [address] HPI - General General Date of Admission: 04/10/23 Date of Service: 04/10/23 HPI Narrative WALI OWENS, is a 67 M who presents today for screening colonoscopy. He has no past medical history and does not take any medicines daily basis. He is not having abdominal pain, cramping, nausea, vomiting or diarrhea. Overall is in very good health. [facility] Medical History Alcohol use Chest pain Heartburn History of echocardiogram History of stress test Non-smoker Wears glasses Wears hearing aid Home Medications acetaminophen 500 mg tablet 500 - 1,000 mg PO Q6H PRN PRN Pain 10/22/16 [History Last Taken Unknown] Allergy/AdvReac Type Severity Reaction Status Date / Time No Known Allergies Allergy Verified 10/23/22 16:14 Family History Father Throat cancer Surgical History History of surgery on arm Hx of appendectomy Social History household members: spouse Smoking Status: Never smoker ROS Review of Systems ROS Unobtainable: other Constitutional Constitutional: Denies fatigue, fever(s), poor appetite, weight gain or weight loss ENT HEENT: Denies mouth lesions Cardiovascular Cardiovascular: Denies abdominal bloating, abdominal edema or abdominal pain Respiratory/Chest Respiratory/Chest: Denies change in mental status, change in phlegm color, chestcongestion or chest tightness Gastrointestinal Gastrointestinal: Denies belching, bloating, change in bowel habits, change in stool character, chewing difficulty, coffee ground emesis, constipation, cramping, diarrhea, dyspepsia, dysphagia, early satiety, excessive flatus, fecalincontinence, heartburn, hematemesis, hematochezia, hemorrhoids, loose stools, melena, nausea, odynophagia, rectal bleeding, tenesmus, vomiting or weight changes Genitourinary Genitourinary: Denies abdominal discomfort, burning urination or itching Musculoskeletal Musculoskeletal: Reports as per HPI; Denies muscle weakness or myalgias Integumentary Integumentary: Denies jaundice Neurologic Neurologic: Denies lack of coordination or weakness Psychiatric Psychiatric: Denies confusion, depression, memory loss, mood swings, paranoia orsuicidal ideation Endocrine Endocrinology: Denies systems reviewed and no addt'l complaints, except as documented Hematologic/Lymphatic Hematologic/Lymphatic: Denies anemia, easy bleeding, easy bruising or lymphadenopathy Allergic/Immunologic Allergic/Immunologic: Denies systems reviewed and no addt'l complaints, except as documented Vital Signs Vital Signs Vital Signs: 04/10/23 10:46 04/10/23 10:46 Temperature 97.2 F L Temperature Source Temporal Pulse Rate 79 Respiratory Rate 16 Respiratory Pattern Normal Blood Pressure 148/101 H Blood Pressure Mean 116 Blood Pressure Source Monitor Blood Pressure Position Semi-Fowlers Blood Pressure Location Left Arm Pulse Ox 99 Oxygen Delivery Method Room Air Weight Weight: 144 lb 6.444 oz Body Mass Index (BMI) 24.0 Physical Exam Const alert General Appearance: cooperative Orientation / Consciousness: oriented to person HEENT hearing grossly normal bilaterally Head and Scalp: normal to inspection Face and Sinus: face symmetric Nose: external nose normal Mouth: oral and palatal mucosa normal Eyes conjunctivae normal General Eye: normal appearance of both eyes Neck full ROM General: normal visual inspection Lymph Lymphatic: no lymphadenopathy noted Chest inspection of chest normal and palpation of chest normal Chest: symmetrical chest wall rise Resp normal respiratory effort Effort and Inspection: able to speak in complete sentences Cardio regular rate GI non-distended Percussion: normal to percussion Rectal Exam: deferred Neuro Speech: speech normal Gait (Neuro): normal gait Assessment & Plan Assessment/Plan (1) Encounter for screening for malignant neoplasm of colon: PLAN: He was explained alternatives, risk, benefits include not withstanding bleeding, infection, sepsis, perforation, need for emergent surgery and . He will have an ASA of 2. 04/10/23 1117 <Electronically signed by Dakota Pennington DO> Cosigner Signature (if applicable): CC: Dakota Pennington DO; [facility]~ Signed [facility] Work Phone: Summary Purpose Family History No Family History Records Found Relationship Condition Age at Onset Recorded Date/T reyes father Malignant neoplasm of throat Unknown Advance Directives No Advanced Directives Records Found Advance Directive Response Recorded Date/ Time Advance Directives No May 28, 2016 12:07pm Living Will No April 08, 2 023 12:03pm Power of Fibrous Plasterer No April 08, 2023 12:03pm Chief Complaint and Reason for Visit Reason for Visit Encounter for screen ing for malignant neoplasm of colon Additional Source Comments (unrecognized sect ion and content) No Status Records FoundNo Status Records FoundNo Status Records Found INFORMATION SOURCE (unrecogn ized section and content) DATE CREATED AUTHOR 06/20/2022 [facility] DATE CREATED AUTHOR AUTHOR'S ORGANIZ ATION 07/18/2023 [facility] DATE CREATED AUTHOR AUTHOR'S ORGANIZ ATION 07/19/2023 [facility] Source Comments (unrecognize d section and content) In the event this informatio n is protected by the Federal Confidentiality of Alcohol and Drug Abuse Patient Records regulations: The Federal rules restrict any use of the information to criminally investigate or prosecute any alcohol or drug abuse patient.[facility] Reason for Visit (unrecogniz ed section and content) Reason Comments Rash itching all over x 3 days Care Teams (unrecognized sec tion and content) Projection Technician Relationship Specialty Start Date End Date Clinic, [facility] [address] [place] [address] PCP - General 11/02/22 Team Status: Active Member Role Status Dates No Primary Care Physician Family Provider Active [facility] Primary Care Provider A ctive Team Status: Active Member Role Status Dates [facility] Primary Care Provider, Referring Provider Active Dr. Dakota Pennington DO Attending Provider, Other Prov ider Active Team Status: Inactive Member Role Status Dates [facility] Primary Care Provider, Referring Provider Active Dr. Dakota Pennington DO Attending Provider Active FOR RECORDS PERTAINING TO PATIENTS WHO ARE OR HAVE BEEN ENROLLED IN A CHEMICAL DEPENDENCY/SUBSTANCEABUSE PROGRAM, SOME INFORMATION MAY BE OMITTED. This clinical summary was aggregated from multiple sources. Caution should be exercised in using it in the provision of clinical care. This summary normalizes information from multiple sources, and as a consequence, information in this document may materially change the coding, format and clinical context of patient data. In addition, data may be omitted in some cases. CLINICAL DECISIONS SHOULD BE BASED ON THE PRIMARY CLINICAL RECORDS. [facility] [facility]. provides no warranty or guarantee of the accuracy or completeness of information in this document.
[2025-04-10 12:50] LABS: Anion Gap 8 (5-15); BUN 11 mg/dL (4-19); BUN/Creat Ratio 12.8 RATIO (10-20); Calcium,Total 9.9 mg/dL (7.6-11.0); Carbon Dioxide 25.6 mmol/L (21.0-32.0); Chloride 106 mmol/L (98-108); Estimated Creatinine Clearance 71.67 ml/min (50-250); Glucose 93 mg/dL (70-99); Potassium 4.2 mmol/L (3.3-5.1)
[2025-04-10 13:12] VITALS: BP 149/95; PULSE 56; RESP 12
== END 2025-04-10 14:29 | disposition home or self-care (01) ==
PROVIDERS: Emergency Provider Emergency Medicine; PCP Nurse Practitioner Family; Visit Provider Emergency Medicine
DX: R51.9 Headache, unspecified (principal)
CPT/HCPCS: 70450; 80048; 85025; 96361; 96374; 96375; 99283; A4216